=== PATIENT | male | born 1990 | race Two or more races ===

== ENCOUNTER 2019-07-15 07:55 | Day surgery (SDC) | payer OTHER ==
[~2019-07-15 07:55] MED LIST: CEFAZOLIN SODIUM 2 GM in DEXTROSE 5%-WATER 100 ML IV PRN
[2019-07-15] MEDS ORDERED: MIDAZOLAM 2 MG/2 ML INJ ONE ×2 (08:29→08:51)
[2019-07-15] MEDS ORDERED: ALBUTEROL SULFATE 0.083% NEB 2.5 MG/3 ML AMPUL NEB ONE ×2 (08:29→08:45)
[2019-07-15] MEDS ORDERED: MIDAZOLAM 2 MG/2 ML INJ IV ONE (08:45)
[2019-07-15] MEDS ORDERED: FENTANYL CITRATE INJ/PF 250 MCG/5 ML AMPULE ONE (08:51)
[2019-07-15] MEDS ORDERED: PROPOFOL INJ 200 MG/20 ML VIAL IV ONE (08:52)
[2019-07-15] MEDS ORDERED: RINGERS SOLUTION,LACTATED 500 ML IV ONE (09:00)
[2019-07-15] MEDS ORDERED: BUPIVACAINE HCL 0.5 % INJ/PF 30 ML SDV ONE (09:51)
[2019-07-15] MEDS ORDERED: LIDOCAINE 2% INJ-PF (20 MG/ML) 2 ML AMPUL ONE (10:13)
[2019-07-15] MEDS ORDERED: ONDANSETRON HCL INJ/PF 4 MG/2 ML SDV ONE (10:13)
[2019-07-15] MEDS ORDERED: ROCURONIUM BROMIDE INJ 50 MG/5 ML VIAL IV ONE (10:13)
[2019-07-15] MEDS ORDERED: DEXAMETHASONE SOD PHOSPHATE INJ 4 MG/1 ML VIAL ONE (10:13)
[2019-07-15] MEDS ORDERED: MEPERIDINE HCL/PF INJ 25 MG/1 ML DISP.SYRIN IV PRN (11:19)
[2019-07-15] MEDS ORDERED: PROMETHAZINE HCL INJ 25 MG/1 ML VIAL IV PRN ×2 (11:19)
[2019-07-15] MEDS ORDERED: DIPHENHYDRAMINE HCL 50 MG/ML VIAL IV PRN (11:19)
[2019-07-15] MEDS ORDERED: OXYCODONE-ACETAMINOPHEN 5-325 MG TABLET PO PRN ×3 (11:19→12:56)
[2019-07-15] MEDS ORDERED: FENTANYL CITRATE INJ/PF 100 MCG/2 ML AMPUL IV PRN ×3 (11:19)
--- NOTE | 2019-07-15 12:07 | Operative Report ---
Operative Report DATE OF SURGERY: 07/15/19 PREOPERATIVE DIAGNOSIS: 1. Right small finger FDS laceration. 2. Right small finger FDP laceration POSTOPERATIVE DIAGNOSIS: 1. Right small finger FDS laceration. 2. Right small finger FDP laceration OPERATION: 1. Right small finger FDS repair. 2. 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 Since his injury he has been unable to actively flex the small finger. Description of procedure: Following the induction of a general anesthetic and administration of 2 g of Ancef, the patient was positioned supine on the operating room table. All bony prominences were padded. The right upper extremity was sterilely prepped with ChloraPrep and draped in standard fashion. The arm was exsanguinated and the tourniquet inflated to 250 mmHg. Silvina's incision was made in the digit. Sharp incision was performed through skin with care taken to identify and protect the digital arteries and nerves. The digital nerves were inspected on both sides of the digit and were found to be intact. The FDP tendon had retracted into the palm which necessitated incising the skin of the palm to locate the tendon. Due to the prolonged period since the injury, the tendon had become adherent to the surrounding tissues. An incision was made proximal to the A1 jay which allowed the FDP tendon to be freed. The FDP tendon was grasped with sutures. The sutures were then grasped through the pulleys allowing the FDP to be pulled through the jay system. At this point the FDS tendons were repaired [id number] with a 6-0 monofilament Prolene. Next the FDP tendon was repaired with a grasping suture technique using 4-0 FiberLoop suture. Epitendinous suture technique was performed on the FDP tendon using 4-0 FiberWire. The wound was copiously irrigated and the skin was reapproximated with monofilament suture. Marcaine was injected in the wound for postoperative analgesia. A bulky sterile dressing and dorsal blocking splint were applied. The patient tolerated the procedure well without complication and was brought to recovery room in stable condition.
[2019-07-15] MEDS ORDERED: ACETAMINOPHEN 1,000 MG/100 ML RTUPB IV ONE (12:21)
[2019-07-15] MEDS ORDERED: KETOROLAC TROMETHAMINE INJ/PF 30 MG/1 ML SDV ONE (12:21)
[2019-07-15] MEDS ORDERED: ONDANSETRON HCL INJ/PF 4 MG/2 ML SDV IV PRN (12:58)
[2019-07-15 15:04] VITALS: BP 121/68
== END 2019-07-15 14:01 | disposition home or self-care (01) ==
LOC: OROUT 07:55
PROVIDERS: ATTEND Orthopaedic Surgery
DX: S66.126A Laceration of flexor muscle, fascia and tendon of right little finger at wrist and hand level, initial encounter (principal); S64.497A Injury of digital nerve of left little finger, initial encounter; W26.0XXA Contact with knife, initial encounter; F17.210 Nicotine dependence, cigarettes, uncomplicated
CPT/HCPCS: 01810; 26356 ×2; J2250; J3490 ×3; J0690; J1100; J3010; J1885; J2405; J7060; J2704; J0131; 1810